=== PATIENT | female | born 2000 | race Caucasian/White ===

== ENCOUNTER 2018-10-19 18:25 | Emergency (ER) | payer OTHER ==
[2018-10-19 18:35] VITALS: TEMP 99.6
[2018-10-19] MEDS ORDERED: KETOROLAC TROMETHAMINE 30 MG/ML SOL IV ONE (19:04)
[2018-10-19] MEDS ORDERED: KETOROLAC TROMETHAMINE 30 MG/ML SOL ONE (19:08)
[2018-10-19] MEDS: SODIUM CHLORIDE 0.9% 1000ML 500 ML IV SCH ×3 (19:15→20:17)
[2018-10-19 19:19] LABS: BASOPHILS % (AUTO) 0 % (0-3); EOSINOPHILS % (AUTO) 0 % (0-9); HEMATOCRIT 36 % (35-47); HEMOGLOBIN 12.5 gm/dl (12.0-15.5); LYMPHOCYTES % (AUTO) 8.8 % (10-50); MEAN CORPUSCULAR HEMOGLOBIN 31.8 pg (27.0-32.0); MEAN CORPUSCULAR HGB CONC 34.6 gm/dl (32.0-36.0); MEAN CORPUSCULAR VOLUME 92 fL (81-99); MONOCYTES % (AUTO) 7.4 % (0-12); NEUTROPHILS % (AUTO) 83.2 % (37-80)
[2018-10-19 19:27] LABS: APPEARANCE,URINE Cloudy; BILIRUBIN,URINE NEGATIVE (NEGATIVE); COLOR,URINE Yellow; GLUCOSE, URINE (UA) NEGATIVE (NEGATIVE); KETONES,URINE NEGATIVE (NEGATIVE); LEUKOCYTE ESTERASE ,URINE 2+ (NEGATIVE); NITRATE,URINE POSITIVE (NEGATIVE); OCCULT BLOOD,URINE 2+ (NEG-TRACE); PH,URINE 7.5
[2018-10-19 19:29] LABS: INR 1.17 (0.86-1.12)
[2018-10-19 19:34] LABS: ALBUMIN 3.2 gm/dl (3.4-5.0); BILIRUBIN,TOTAL 0.6 mg/dl (0.2-1.0); CALCIUM 8.1 mg/dl (8.5-10.1); CREATININE 0.78 mg/dl (0.60-1.00); POTASSIUM 3.5 mMol/L (3.5-5.1); TOTAL PROTEIN 7.1 gm/dl (6.4-8.2)
[2018-10-19 19:39] LABS: BACTERIA 3+ (< 1+); CRYSTALS NEGATIVE (0-3 AVE/HPF); EPITHELIAL CELLS 0-3 (SQUAMOUS); WBC,URINE 70-80 (0-5AV/HPF)
[2018-10-19] MEDS ORDERED: LEVOFLOXACIN 25 MG/ML 500 MG in SODIUM CHLORIDE 0.9% 100 ML 100 ML IV ONE (20:15)
[2018-10-19] MEDS ORDERED: LEVOFLOXACIN 25 MG/ML SOL IV ONE (20:26)
[2018-10-19 20:45] VITALS: RESP 16
[2018-10-20 02:03] VITALS: BP 98/59; PULSE 107; O2SAT 98
== END 2018-10-19 22:12 | disposition home or self-care (01) | DRG 690 ==
LOC: ED 18:25
DX: N10 Acute pyelonephritis (principal)
CPT/HCPCS: 36415; 74176; 80053; 81001; 84703; 85025; 85610; 87077; 87088; 87186; 96365; 96366; 96374; 99070; 99283; 99285; J1885; J1956